=== PATIENT | male | born 1965 | race Caucasian/White ===

== ENCOUNTER 2016-11-29 08:32 | Inpatient (IN) | payer BC, OTHER ==
[~2016-11-29] VITALS: Ht 185.4 cm; Wt 83.9 kg
[2016-11-30 00:55] VITALS: BP 114/68
[2016-11-30 01:32] LABS: *AMPHETAMINE, URINE NEGATIVE (NEGATIVE); *BARBITURATE, URINE NEGATIVE (NEGATIVE); *CANNABINOID, URINE POSITIVE (NEGATIVE); *COCCAINE, URINE POSITIVE (NEGATIVE); *OPIATE, URINE NEGATIVE (NEGATIVE); *PHENCYCLIDINE SCREEN,URINE NEGATIVE (NEGATIVE)
[2016-11-30] MEDS ORDERED: LORAZEPAM 2 MG/1 ML VIAL IM PRN (02:00)
[2016-11-30] MEDS ORDERED: IBUPROFEN 400 MG TABLET PO PRN (02:00)
[2016-11-30] MEDS ORDERED: ONDANSETRON ODT 4 MG TAB.RAPDIS SL PRN (02:00)
[2016-11-30] MEDS ORDERED: ACETAMINOPHEN 325 MG TABLET PO PRN (02:00)
[2016-11-30] MEDS ORDERED: LORAZEPAM 1 MG TABLET PO PRN ×2 (02:00)
[2016-11-30] MEDS ORDERED: MAGNESIUM HYDROXIDE 30 ML LIQUID UDC PO PRN (02:00)
[2016-11-30] MEDS ORDERED: THIAMINE HCL 200 MG/2 ML VIAL IM ONE (02:00)
[2016-11-30] MEDS ORDERED: MIRALAX 17 GM POWD.PACK PO PRN (02:00)
[2016-11-30] MEDS ORDERED: LOPERAMIDE HCL 2 MG CAPSULE PO PRN ×2 (02:00)
[2016-11-30] MEDS ORDERED: HYDROXYZINE PAMOATE 25 MG CAPSULE PO PRN (02:00)
[2016-11-30] MEDS ORDERED: LISI10TA5 PO (02:08)
[2016-11-30] MEDS ORDERED: CEPH-570 PO (02:08)
[2016-11-30] MEDS ORDERED: THIAMINE HCL 200 MG/2 ML VIAL ONE (02:12)
[2016-11-30 04:14] VITALS: BP 118/76
[2016-11-30] MEDS ORDERED: DIPH25TA62 PO (04:21)
[2016-11-30 08:00] VITALS: BP 109/64
[2016-11-30 08:22] LABS: BASOPHILS % (AUTO) 0.4 % (0.0-2.0); EOSINOPHILS # (AUTO) 0.1 K/uL (0.0-0.7); EOSINOPHILS % (AUTO) 2.5 % (0.0-7.0); HEMATOCRIT 30.1 % (40-50); HEMOGLOBIN 10.3 G/DL (14.0-18.0); LYMPHOCYTES # (AUTO) 1.6 K/UL (0.8-4.8); MEAN CORPUSCULAR HEMOGLOBIN 31.9 UUG (27.0-31.0); MEAN CORPUSCULAR HGB CONC 34 g/dL (32.0-37.0); MEAN CORPUSCULAR VOLUME 93.5 FL (82.0-92.0); MONOCYTES # (AUTO) 0.3 K/UL (0.1-1.30); MONOCYTES % (AUTO) 6.4 % (0.0-11.0); NEUTROPHILS # (AUTO) 3.4 K/UL (1.8-8.9); NEUTROPHILS % (AUTO) 61.7 % (38.5-71.5); PLATELET COUNT (AUTO) 391 K/UL (150-450); RED BLOOD CELL COUNT(AUTO) 3.22 MIL/UL (4.7-6.1); RED CELL DISTRIBUTION WIDTH 14.5 % (11.5-14.5); WHITE BLOOD COUNT (AUTO) 5.4 K/UL (4.0-11.2)
[2016-11-30 08:34] LABS: ALANINE AMINOTRANSFERASE 21 U/L (16-63); ALKALINE PHOSPHATASE 54 U/L (50-136); AMYLASE 84 U/L (25-115); ASPARTATE AMINOTRANSFERASE 23 U/L (15-37); BILIRUBIN,TOTAL 0.3 mg/dL (0.2-1.0); CALCIUM 7.9 mg/dL (8.5-10.1); CARBON DIOXIDE 32 mmol/L (21-32); CHLORIDE 105 mmol/L (98-107); CREATININE 1.2 mg/dL (0.6-1.3); GFR 64 mL/min (>60); GLUCOSE 104 mg/dL (74-106); LIPASE 216 U/L (73-393); MAGNESIUM 2.4 mg/dL (1.8-2.4); POTASSIUM 3.1 mmol/L (3.5-5.1); SODIUM SERUM 143 mmol/L (136-145); TOTAL PROTEIN, SERUM 6.4 g/dL (6.4-8.2); UREA NITROGEN, BLOOD 10 mg/dL (7-18)
[2016-11-30 08:41] LABS: THYROID STIMULATING HORMONE 0.569 mIU/mL (0.358-3.740)
[2016-11-30 08:47] LABS: ETHANOL < 3 MG/DL (0-0)
[2016-11-30] MEDS: THIAMINE HCL 100 MG TABLET PO SCH (08:58)
[2016-11-30] MEDS: MULTIVITAMINS,THERAPEUTIC TABLET PO SCH (08:58)
[2016-11-30] MEDS: FOLIC ACID 1 MG TABLET PO SCH (08:58)
[2016-11-30 10:33] LABS: HIV-1 p24 ANTIGEN NON REACTIVE (NONREACTIVE); HIV-1/2 ANTIBODY NON REACTIVE (NONREACTIVE)
[2016-11-30] MEDS ORDERED: POTASSIUM CHLORIDE 20 MEQ TAB.PRT.SR PO ONE (11:15)
[2016-11-30] MEDS: POTASSIUM CHLORIDE 10 MEQ CAPSULE.SA PO SCH ×2 (11:37→13:17)
[2016-11-30 12:00] VITALS: BP 112/61
[2016-11-30] MEDS: CEPHALEXIN MONOHYDRATE 500 MG CAPSULE PO SCH ×2 (13:17→18:07)
[2016-11-30] MEDS: GABAPENTIN 300 MG CAPSULE PO SCH (14:39)
[2016-11-30 16:00] VITALS: BP 102/66
[2016-11-30 20:20] VITALS: BP 115/80
[2016-11-30] MEDS ORDERED: GABAPENTIN 300 MG CAPSULE PO SCH (21:00)
[2016-12-01] MEDS: diphenhydrAMINE 50 MG CAPSULE PO PRN (00:05)
[2016-12-01] MEDS: CEPHALEXIN MONOHYDRATE 500 MG CAPSULE PO SCH ×4 (00:05→18:45)
[2016-12-01 00:11] VITALS: BP 129/81
[2016-12-01 04:16] VITALS: BP 117/73
[2016-12-01 08:00] VITALS: BP 124/81
[2016-12-01 08:32] LABS: CALCIUM 7.9 mg/dL (8.5-10.1); CREATININE 1.2 mg/dL (0.6-1.3); POTASSIUM 3.5 mmol/L (3.5-5.1)
[2016-12-01 08:33] LABS: IRON, SERUM 41 ug/dL (50-175)
[2016-12-01] MEDS ORDERED: 5 DAY TAPER OF LORAZEPAM -SERENITY PROTOCOL PO PRN (09:00)
[2016-12-01] MEDS ORDERED: TUBERCULIN,PURIF.PROT.DERIV. 5 TU/0.1 ML TEST ID ONE (09:00)
[2016-12-01 09:01] LABS: FERRITIN 99 ng/mL (26-388)
[2016-12-01] MEDS: GABAPENTIN 300 MG CAPSULE PO SCH ×2 (09:50→14:58)
[2016-12-01] MEDS: FOLIC ACID 1 MG TABLET PO SCH (09:50)
[2016-12-01] MEDS: MULTIVITAMINS,THERAPEUTIC TABLET PO SCH (09:50)
[2016-12-01] MEDS: THIAMINE HCL 100 MG TABLET PO SCH (09:50)
[2016-12-01] MEDS: LORAZEPAM 1 MG TABLET PO SCH ×4 (09:50→21:22)
[2016-12-01 11:21] LABS: HEPATITIS B CORE AB, IgM Negative (Negative); HEPATITIS B SURFACE AG Negative (Negative)
[2016-12-01 12:00] VITALS: BP 128/63
[2016-12-01 16:00] VITALS: BP 118/86
[2016-12-01 20:00] VITALS: BP_SYST 142; BP_SYST 143; BP_DIAS 85; BP_DIAS 89
[2016-12-01] MEDS: LACTOBACILLUS RHAMNOSUS GG 1 EACH CAPSULE PO SCH (21:22)
[2016-12-01] MEDS ORDERED: LACTOBACILLUS RHAMNOSUS GG 1 EACH CAPSULE ONE (21:23)
[2016-12-02] VITALS: BP 143/85
[2016-12-02] MEDS: CEPHALEXIN MONOHYDRATE 500 MG CAPSULE PO SCH ×5 (00:41→23:28)
[2016-12-02 08:00] VITALS: BP 144/97
[2016-12-02 08:35] LABS: BASOPHILS % (AUTO) 0.4 % (0.0-2.0); EOSINOPHILS # (AUTO) 0.1 K/uL (0.0-0.7); EOSINOPHILS % (AUTO) 2.5 % (0.0-7.0); HEMATOCRIT 31.5 % (40-50); HEMOGLOBIN 10.7 G/DL (14.0-18.0); LYMPHOCYTES # (AUTO) 1.1 K/UL (0.8-4.8); MEAN CORPUSCULAR HEMOGLOBIN 31.8 UUG (27.0-31.0); MEAN CORPUSCULAR HGB CONC 34 g/dL (32.0-37.0); MEAN CORPUSCULAR VOLUME 93.8 FL (82.0-92.0); MONOCYTES # (AUTO) 0.3 K/UL (0.1-1.30); MONOCYTES % (AUTO) 4.8 % (0.0-11.0); NEUTROPHILS # (AUTO) 3.8 K/UL (1.8-8.9); NEUTROPHILS % (AUTO) 72.3 % (38.5-71.5); PLATELET COUNT (AUTO) 360 K/UL (150-450); RED BLOOD CELL COUNT(AUTO) 3.37 MIL/UL (4.7-6.1); RED CELL DISTRIBUTION WIDTH 15.1 % (11.5-14.5); WHITE BLOOD COUNT (AUTO) 5.3 K/UL (4.0-11.2)
[2016-12-02] MEDS: ASCORBIC ACID 250 MG TABLET PO SCH ×2 (08:57→21:44)
[2016-12-02] MEDS: THIAMINE HCL 100 MG TABLET PO SCH (08:57)
[2016-12-02] MEDS: FOLIC ACID 1 MG TABLET PO SCH (08:57)
[2016-12-02] MEDS: MULTIVITAMINS,THERAPEUTIC TABLET PO SCH (08:57)
[2016-12-02] MEDS: LACTOBACILLUS RHAMNOSUS GG 1 EACH CAPSULE PO SCH ×2 (08:57→21:45)
[2016-12-02] MEDS: FERROUS SULFATE 325 MG TABEC PO SCH ×2 (08:57→21:44)
[2016-12-02] MEDS: LORAZEPAM 1 MG TABLET PO SCH ×3 (08:58→21:45)
[2016-12-02 09:03] LABS: CALCIUM 8.4 mg/dL (8.5-10.1); CREATININE 1.1 mg/dL (0.6-1.3); MAGNESIUM 2.4 mg/dL (1.8-2.4); PHOSPHOROUS 2.7 mg/dL (2.5-4.9); POTASSIUM 3.7 mmol/L (3.5-5.1)
[2016-12-02 09:49] LABS: FOLIC ACID 10.7 NG/ML (8.6-58.9)
[2016-12-02 12:00] VITALS: BP 123/87
[2016-12-02 16:00] VITALS: BP 135/87
[2016-12-02 20:00] VITALS: BP 149/109
[2016-12-02] MEDS ORDERED: LISINOPRIL 10 MG TABLET PO SCH (21:00)
[2016-12-02] MEDS: diphenhydrAMINE 50 MG CAPSULE PO PRN (23:37)
[2016-12-03 04:00] VITALS: BP 133/84
[2016-12-03] MEDS: CEPHALEXIN MONOHYDRATE 500 MG CAPSULE PO SCH ×4 (06:54→23:28)
[2016-12-03 08:00] VITALS: BP 109/79
[2016-12-03] MEDS: ASCORBIC ACID 250 MG TABLET PO SCH ×2 (09:06→20:54)
[2016-12-03] MEDS: LORAZEPAM 1 MG TABLET PO SCH ×4 (09:06→20:55)
[2016-12-03] MEDS: MULTIVITAMINS,THERAPEUTIC TABLET PO SCH (09:06)
[2016-12-03] MEDS: LACTOBACILLUS RHAMNOSUS GG 1 EACH CAPSULE PO SCH ×2 (09:06→20:54)
[2016-12-03] MEDS: LISINOPRIL 10 MG TABLET PO SCH (09:06)
[2016-12-03] MEDS: FERROUS SULFATE 325 MG TABEC PO SCH ×2 (09:06→20:54)
[2016-12-03] MEDS: FOLIC ACID 1 MG TABLET PO SCH (09:06)
[2016-12-03] MEDS: THIAMINE HCL 100 MG TABLET PO SCH (09:06)
[2016-12-03 12:00] VITALS: BP 124/79
[2016-12-03 16:00] VITALS: BP 143/94
[2016-12-03 20:00] VITALS: BP 117/76
[2016-12-03] MEDS ORDERED: FAMOTIDINE 20 MG TABLET PO SCH (22:30)
[2016-12-03] MEDS ORDERED: KETOROLAC TROMETHAMINE 30 MG INJ IM PRN (22:30)
[2016-12-03] MEDS: diphenhydrAMINE 50 MG CAPSULE PO PRN (22:36)
[2016-12-03] MEDS ORDERED: FAMOTIDINE 20 MG TABLET ONE (22:43)
[2016-12-03] MEDS ORDERED: KETOROLAC TROMETHAMINE 30 MG INJ ONE (22:44)
[2016-12-04] VITALS: BP 119/76
[2016-12-04 04:00] VITALS: BP 110/69
[2016-12-04] MEDS: CEPHALEXIN MONOHYDRATE 500 MG CAPSULE PO SCH ×3 (06:57→17:24)
[2016-12-04 08:00] VITALS: BP 121/72
[2016-12-04] MEDS: LACTOBACILLUS RHAMNOSUS GG 1 EACH CAPSULE PO SCH ×2 (09:34→20:56)
[2016-12-04] MEDS: FOLIC ACID 1 MG TABLET PO SCH (09:34)
[2016-12-04] MEDS: FERROUS SULFATE 325 MG TABEC PO SCH ×2 (09:34→20:54)
[2016-12-04] MEDS: FAMOTIDINE 20 MG TABLET PO SCH ×2 (09:34→20:54)
[2016-12-04] MEDS: ASCORBIC ACID 250 MG TABLET PO SCH ×2 (09:34→20:55)
[2016-12-04] MEDS: LISINOPRIL 10 MG TABLET PO SCH (09:34)
[2016-12-04] MEDS: THIAMINE HCL 100 MG TABLET PO SCH (09:34)
[2016-12-04] MEDS: MULTIVITAMINS,THERAPEUTIC TABLET PO SCH (09:34)
[2016-12-04] MEDS: LORAZEPAM 1 MG TABLET PO SCH ×3 (09:35→20:54)
[2016-12-04 12:00] VITALS: BP 118/68
[2016-12-04] MEDS: CLONIDINE HCL 0.1 MG TABLET PO PRN ×2 (17:28→20:55)
[2016-12-04 17:30] VITALS: BP 150/98
[2016-12-04 20:00] VITALS: BP 141/97
[2016-12-04] MEDS: diphenhydrAMINE 50 MG CAPSULE PO PRN (20:58)
[2016-12-05] VITALS: BP 112/71
[2016-12-05] MEDS: CEPHALEXIN MONOHYDRATE 500 MG CAPSULE PO SCH ×3 (00:35→12:34)
[2016-12-05 08:00] VITALS: BP 104/68
[2016-12-05] MEDS: LORAZEPAM 1 MG TABLET PO SCH ×2 (09:13→20:52)
[2016-12-05] MEDS: THIAMINE HCL 100 MG TABLET PO SCH (09:13)
[2016-12-05] MEDS: LISINOPRIL 10 MG TABLET PO SCH (09:13)
[2016-12-05] MEDS: MULTIVITAMINS,THERAPEUTIC TABLET PO SCH (09:13)
[2016-12-05] MEDS: FOLIC ACID 1 MG TABLET PO SCH (09:14)
[2016-12-05] MEDS: LACTOBACILLUS RHAMNOSUS GG 1 EACH CAPSULE PO SCH (09:14)
[2016-12-05] MEDS: FAMOTIDINE 20 MG TABLET PO SCH ×2 (09:14→20:52)
[2016-12-05] MEDS: ASCORBIC ACID 250 MG TABLET PO SCH ×2 (09:14→20:52)
[2016-12-05] MEDS: FERROUS SULFATE 325 MG TABEC PO SCH ×2 (09:14→20:52)
[2016-12-05 12:00] VITALS: BP 135/90
[2016-12-05 16:00] VITALS: BP 129/87
[2016-12-05] MEDS: MAG HYDROX/AL HYDROX/SIMETH 30 ML LIQUID UDC PO PRN (19:34)
[2016-12-05] MEDS: DICYCLOMINE HCL 20 MG TABLET PO PRN (19:34)
[2016-12-05 20:00] VITALS: BP 146/97
[2016-12-05] MEDS: CLONIDINE HCL 0.1 MG TABLET PO PRN (20:53)
[2016-12-06] VITALS: BP 127/75
[2016-12-06] MEDS: diphenhydrAMINE 50 MG CAPSULE PO PRN ×2 (00:23→20:31)
[2016-12-06 08:00] VITALS: BP 114/75
[2016-12-06] MEDS: FERROUS SULFATE 325 MG TABEC PO SCH ×2 (08:25→20:30)
[2016-12-06] MEDS: MULTIVITAMINS,THERAPEUTIC TABLET PO SCH (08:25)
[2016-12-06] MEDS: THIAMINE HCL 100 MG TABLET PO SCH (08:25)
[2016-12-06] MEDS: FOLIC ACID 1 MG TABLET PO SCH (08:25)
[2016-12-06] MEDS: FAMOTIDINE 20 MG TABLET PO SCH ×2 (08:25→20:30)
[2016-12-06] MEDS: LISINOPRIL 10 MG TABLET PO SCH (08:26)
[2016-12-06] MEDS: ASCORBIC ACID 250 MG TABLET PO SCH ×2 (08:26→20:31)
[2016-12-06 12:00] VITALS: BP 114/75
[2016-12-06] MEDS ORDERED: HYDR-3895 PO (12:29)
[2016-12-06] MEDS ORDERED: CLON0.1T14 PO (12:29)
[2016-12-06] MEDS ORDERED: DICY20TA28 PO (12:29)
[2016-12-06 12:37] LABS: *OCCULT BLOOD STOOL NEGATIVE (NEGATIVE)
[2016-12-06 14:58] LABS: *AMPHETAMINE, URINE NEGATIVE (NEGATIVE); *BARBITURATE, URINE NEGATIVE (NEGATIVE); *CANNABINOID, URINE NEGATIVE (NEGATIVE); *COCCAINE, URINE NEGATIVE (NEGATIVE); *OPIATE, URINE NEGATIVE (NEGATIVE); *PHENCYCLIDINE SCREEN,URINE NEGATIVE (NEGATIVE)
[2016-12-06 16:00] VITALS: BP 127/69
[2016-12-06 20:00] VITALS: BP 136/91
[2016-12-06] MEDS: DICYCLOMINE HCL 20 MG TABLET PO PRN (20:30)
[2016-12-06] MEDS: MAG HYDROX/AL HYDROX/SIMETH 30 ML LIQUID UDC PO PRN (20:31)
[2016-12-07 08:00] VITALS: BP 125/88
[2016-12-07 09:12] VITALS: BP 115/74
[2016-12-07] MEDS: FOLIC ACID 1 MG TABLET PO SCH (09:12)
[2016-12-07] MEDS: ASCORBIC ACID 250 MG TABLET PO SCH (09:12)
[2016-12-07] MEDS: MULTIVITAMINS,THERAPEUTIC TABLET PO SCH (09:12)
[2016-12-07] MEDS: FERROUS SULFATE 325 MG TABEC PO SCH (09:12)
[2016-12-07] MEDS: FAMOTIDINE 20 MG TABLET PO SCH (09:12)
[2016-12-07] MEDS: THIAMINE HCL 100 MG TABLET PO SCH (09:12)
[2016-12-07] MEDS: LISINOPRIL 10 MG TABLET PO SCH (09:12)
[2016-12-08 07:08] LABS: *CANNABINOID (THC) Positive (.); *COCAINE Positive (.)
== END 2016-12-07 09:40 | disposition home or self-care (01) | DRG 895 ==
LOC: SRC 11-30 00:23
PROVIDERS: ADMIT Internal Medicine; ATTEND Internal Medicine
PROC: HZ2ZZZZ Detoxification Services for Substance Abuse Treatment (ICD-10-PCS; principal; 2016-11-30)
PROC: HZ41ZZZ Group Counseling for Substance Abuse Treatment, Behavioral (ICD-10-PCS; 2016-12-02)
PROC: HZ31ZZZ Individual Counseling for Substance Abuse Treatment, Behavioral (ICD-10-PCS; 2016-12-03)
DX: F10.230 Alcohol dependence with withdrawal, uncomplicated (principal); F14.23 Cocaine dependence with withdrawal; Y90.0 Blood alcohol level of less than 20 mg/100 ml; S81.812D Laceration without foreign body, left lower leg, subsequent encounter; L08.9 Local infection of the skin and subcutaneous tissue, unspecified; X99.9XXD Assault by unspecified sharp object, subsequent encounter; Y92.89 Other specified places as the place of occurrence of the external cause; F17.210 Nicotine dependence, cigarettes, uncomplicated; E87.6 Hypokalemia; D64.9 Anemia, unspecified; F32.9 Major depressive disorder, single episode, unspecified; F41.9 Anxiety disorder, unspecified; I10 Essential (primary) hypertension; Z80.0 Family history of malignant neoplasm of digestive organs; Z79.899 Other long term (current) drug therapy
CPT/HCPCS: 36415; 70030-TC; 80307; 80349; 80353; 82746; 82747; 83550; 83690; 83735; 84100; 84443; 85014; 85025; 86705; 87340; 87806; G6040-TC; J1885; J3411; Q0163